=== PATIENT | female | born 1990 | race African-American/Black ===

== ENCOUNTER 2017-12-05 11:15 | Emergency (ER) | payer OTHER ==
[2017-12-05 13:56] LABS: URINE PH (Dip) POC 6.5 (5.0-8.5)
[2017-12-05 13:56] LABS: URINE BLOOD (Dip) POC 2+ (NEGATIVE); URINE GLUCOSE (Dip) POC Negative (NEGATIVE); URINE KETONES (Dip) POC Negative (NEGATIVE); URINE LEUKOCYTE EST (Dip) POC 3+ (NEGATIVE); URINE NITRITE (Dip) POC Negative (NEGATIVE); URINE TOTAL PROTEIN POC 1+ (NEGATIVE)
== END 2017-12-05 14:38 | disposition home or self-care (01) ==
LOC: FTE 11:15
DX: N12 Tubulo-interstitial nephritis, not specified as acute or chronic (principal)
CPT/HCPCS: 81003; 99283